=== PATIENT | male | born 1990 | race Caucasian/White ===

== ENCOUNTER 2024-07-14 15:01 | Emergency (ER) | payer SELFPAY ==
[~2024-07-14] VITALS: Ht 175.3 cm; Wt 85.0 kg
[2024-07-14 15:16] VITALS: O2SAT 100
[2024-07-14 15:50] LABS: CLARITY URINE CLEAR (CLEAR); COLOR URINE YELLOW (YELLOW); GLUCOSE URINE NEGATIVE (NEGATIVE); KETONES URINE NEGATIVE (NEGATIVE); LEUKOCYTE ESTERASE URINE NEGATIVE (NEGATIVE); NITRITE URINE NEGATIVE (NEGATIVE); OCCULT BLOOD URINE TRACE (NEGATIVE); PROTEIN URINE NEGATIVE (NEGATIVE); SPECIFIC GRAVITY URINE 1.021 (1.005-1.030); UROBILINOGEN URINE 0.2 E.U./dL (0.2-1.0)
[2024-07-14 15:53] LABS: BASOPHILS % 0.8 % (0.0-2.0); EOSINOPHILS % 2.4 % (0.0-5.0); HEMATOCRIT. 50.1 % (42.0-52.0); HEMOGLOBIN. 16.6 g/dL (14.0-18.0); LYMPHOCYTES % 36.4 % (20.0-50.0); MEAN CORPUSCULAR HGB CONC 33.1 g/dL (31.0-37.0); MEAN CORPUSCULAR VOLUME 84.3 fL (80.0-94.0); MEAN PLATELET VOLUME 8.6 fl (7.4-10.4); MONOCYTES % 9.6 % (2.0-8.0); NEUTROPHILS % 50.8 % (40.0-76.0); PLATELET 239 x1000/uL (130-400); RED BLOOD CELL COUNT 5.94 mill/uL (4.7-6.1); RED CELL DISTRIBUTION WIDTH 13.7 % (11.6-14.6); WHITE BLOOD COUNT 6.8 x1000/uL (4.5-11.0)
[2024-07-14 15:58] LABS: CHLORIDE 105 mEq/L (98-107); POTASSIUM 3.9 mEq/L (3.5-5.1); SODIUM 140 mEq/L (136-145)
[2024-07-14 15:59] LABS: CARBON DIOXIDE 27 mEq/L (21-32)
[2024-07-14 16:00] LABS: CALCIUM 10.2 mg/dL (8.7-10.4)
[2024-07-14 16:04] LABS: GLUCOSE 93 mg/dL (70-105); UREA NITROGEN BLOOD 17 mg/dL (9-23)
[2024-07-14 16:15] LABS: BACTERIA URINE TRACE; RBC URINE 0-2 /hpf (0-2); SQUAMOUS EPITHELIAL CELL URINE RARE /lpf (RARE/1+); WBC URINE 0-2 /hpf (0-2)
[2024-07-14] MEDS: ONDANSETRON 4MG ODT PO STA (16:16)
[2024-07-14] MEDS: DICYCLOMINE 10 MG/5 ML ORAL SYR PO STA (16:16)
[2024-07-14] MEDS: MAGNESIUM/ALUMINUM HYDROXIDE/SIMETHICONE 30ML UDC PO STA (16:16)
[2024-07-14] MEDS ORDERED: TOPUD PO (16:47)
[2024-07-14 17:05] VITALS: BP 146/92; PULSE 81; RESP 18; TEMP 36.9; O2SAT 96
== END 2024-07-14 17:19 | disposition home or self-care (01) ==
LOC: ER 15:01
DX: R10.9 Unspecified abdominal pain (principal)
CPT/HCPCS: 99284; 74176; 80048; 81003; 85025; 36415; Q0162